=== PATIENT | female | born 1930 | race Caucasian/White ===

== ENCOUNTER 2017-12-08 13:11 | Emergency (ER) | payer MEDICARE, BC ==
--- NOTE | 2017-12-08 14:28 | RAD ---
RIGHT KNEE FOUR VIEWS: Indication: Post-traumatic pain. FINDINGS: Right knee prosthesis is present without hardware complication identified. No acute fracture is seen. IMPRESSION: Post-operative right knee without acute osseous abnormality visualized. POS: [facility]
--- NOTE | 2017-12-08 14:32 | RAD ---
TWO VIEW RIGHT HIP: Indication: Post-traumatic pain. FINDINGS: There is endstage osteoarthritis with obliteration of the joint space of the right hip. Subchondral s clerosis and cyst formation is present as well as prominent osteophytosis. There is irregularity of t he cephalad aspect of the greater trochanter, age indeterminate. Incidental note of osseous degenerat miguel change of the lower lumbar spine. IMPRESSION: 1. Osseous irregularity at the lateral aspect of the greater trochanter, age indeterminate. A minimal ly displaced acute fracture is suspected. Recommend correlation with physical examination and if nece ssary imaging follow up for confirmation. 2. Endstage right hip joint osteoarthritis. POS: [facility]
--- NOTE | 2017-12-08 15:05 | RAD ---
1 VIEW PELVIS: Date: 12/08/17 HISTORY: Trauma. COMPARISON: None. FINDINGS: Sacral ala preserved. Bony pelvis intact. sclerosis right sacroiliac joint. Moderate degenerative evan nge of right hip joint space. There appears to be a nondisplaced right greater trochanteric fracture. IMPRESSION: Nondisplaced right greater trochanteric fracture. POS: [facility]
--- NOTE | 2017-12-08 15:19 | CT ---
CT OF PELVIS NONCONTRAST: Date: 12/08/17 CLINICAL HISTORY: Fall with post-traumatic pain of the right hip with edema. FINDINGS: There is a mildly displaced, comminuted fracture centered at the greater trochanter of the proximal r ight femur. There is end-stage osteoarthritis of the right hip with joint space obliteration, subchon dral sclerosis, and cyst formation, as well as exuberant osteophytosis and heterotopic densities. The re is relative osteopenia at the proximal femora bilaterally. Degenerative changes are seen at the sy mphysis pubis and sacroiliac joints. There is osteoarthritis involving the imaged lower lumbar facet joints. Disc degenerative change is seen at the lower lumbar spine and lumbosacral junction. Incident al note of atherosclerosis, colonic diverticulosis, and fat-containing periumbilical hernia. IMPRESSION: There is a comminuted, mildly displaced greater trochanteric fracture of the right femur. POS: [facility]
[2017-12-08] MEDS ORDERED: Ondansetron HCl/PF 4 MG/2 ML Vial ONE (15:27)
[2017-12-08] MEDS ORDERED: HYDROcodone/Acetaminophen 10/325 mg Tablet ONE ×2 (15:27→15:28)
[2017-12-08 15:28] LABS: #Basophils 0.1 thou/uL (0.0-0.2); #Eosinphils 0.1 thou/uL (0.0-0.7); #Lymphocytes 1.8 thou/uL (1.20-3.40); #Monocytes 1.5 thou/uL (0.11-0.59); #Neutrophils 8.2 thou/uL (1.40-6.50); %Basophils 0.5 % (0.0-1.0); %Eosinophils 0.5 % (0.0-10.0); %Lymphocytes 15.1 % (21.0-51.0); %Monocytes 13.3 % (0.0-10.0); %Neutrophils 70.6 % (42.0-75.0); Hemoglobin 13.3 g/dL (12.0-16.0); Mean Corpuscular HGB CONC 35.9 g/dL (32.0-36.0); Mean Corpuscular Hemoglobin 34.5 pg (27.0-31.0); Mean Platelet Volume 6.9 fL (7.4-10.4); Platelet Count 210 thou/uL (130-400); RBC Distribution Width 11.5 % (11.5-14.5); Red Blood Cell (RBC) Count 3.85 mill/uL (4.20-5.40); White Blood Cell (WBC) Count 11.7 thou/uL (4.8-10.8)
[2017-12-08 15:36] LABS: INR-International Normal Ratio 1.8; PTT 51.1 SEC (22.9-36.1); Prothrombin Time 21.4 SEC (12.0-14.7)
[2017-12-08 15:49] LABS: ALT (SGPT) 18 U/L (8-55); AST (SGOT) 24 U/L (5-34); Albumin 3.8 g/dL (3.4-4.8); Alkaline Phosphatase 74 U/L (40-150); Anion Gap 14 mmol/L (10-20); BUN (Urea Nitrogen) 23 mg/dL (9.8-20.1); Bilirubin, Total 0.8 mg/dL (0.2-1.2); Calc. Creatinine Clearance 0 mL/min (70-130); Calcium 9.9 mg/dL (7.8-10.44); Carbon Dioxide 34 mmol/L (23-31); Chloride 89 mmol/L (98-107); Estimated GFR-MDRD 49; Globulin 3.2 g/dL (2.4-3.5); Glucose 117 mg/dL (83-110); Sodium 134 mmol/L (136-145)
== END 2017-12-08 21:19 ==
LOC: ERS 13:11
DX: S72.114A Nondisplaced fracture of greater trochanter of right femur, initial encounter for closed fracture (principal); I48.91 Unspecified atrial fibrillation; I10 Essential (primary) hypertension; E03.9 Hypothyroidism, unspecified; W06.XXXA Fall from bed, initial encounter
CPT/HCPCS: 36415; 72170; 72192; 80053; 85025; 85610; 85730; 96361; 96374; 96375; J2270; J2405

== ENCOUNTER 2018-04-15 07:58 | Inpatient (IN) | payer MEDICARE, BC ==
[2018-04-15] MEDS ORDERED: Diltiazem 125 MG/25 ML ONE ×2 (08:13→08:45)
[2018-04-15 08:30] LABS: #Basophils 0.1 thou/uL (0.0-0.2); #Lymphocytes 1.1 thou/uL (1.20-3.40); #Monocytes 0.9 thou/uL (0.11-0.59); %Basophils 0.7 % (0.0-1.0); %Eosinophils 0.5 % (0.0-10.0); %Lymphocytes 12.2 % (21.0-51.0); %Neutrophils 76.7 % (42.0-75.0); Hemoglobin 12.9 g/dL (12.0-16.0); Mean Corpuscular HGB CONC 33.5 g/dL (32.0-36.0); Mean Corpuscular Hemoglobin 31.7 pg (27.0-31.0); Mean Corpuscular Volume 94.5 fL (78.0-98.0); Mean Platelet Volume 7.4 fL (7.4-10.4); Platelet Count 204 thou/uL (130-400); RBC Distribution Width 13.6 % (11.5-14.5); Red Blood Cell (RBC) Count 4.07 mill/uL (4.20-5.40); White Blood Cell (WBC) Count 9.1 thou/uL (4.8-10.8)
[2018-04-15] MEDS ORDERED: Diltiazem 125 MG in Sodium Chloride 0.9% 100 ML IVPB SCH ×2 (08:30→19:00)
[2018-04-15 08:49] LABS: ALT (SGPT) 65 U/L (8-55); AST (SGOT) 74 U/L (5-34); Albumin 3.9 g/dL (3.4-4.8); Alkaline Phosphatase 142 U/L (40-150); Anion Gap 13 mmol/L (10-20); BUN (Urea Nitrogen) 14 mg/dL (9.8-20.1); Bilirubin, Total 1.3 mg/dL (0.2-1.2); Calc. Creatinine Clearance 0 mL/min (70-130); Calcium 9.5 mg/dL (7.8-10.44); Carbon Dioxide 25 mmol/L (23-31); Chloride 103 mmol/L (98-107); Estimated GFR-MDRD 65; Globulin 3.4 g/dL (2.4-3.5); Glucose 153 mg/dL (83-110); Potassium 4.1 mmol/L (3.5-5.1); Protein, Total 7.3 g/dL (6.0-8.3); Sodium 137 mmol/L (136-145)
[2018-04-15 08:53] LABS: CKMB 1.3 ng/mL (0-6.6); Troponin I Less than 0.010 ng/mL (< 0.028)
--- NOTE | 2018-04-15 10:06 | RAD ---
FRONTAL VIEW CHEST: COMPARISON: 05/30/07. CLINICAL HISTORY: Chest pain. FINDINGS: The cardiac silhouette is enlarged. There is interstitial prominence and prominence of the pulmonary vasculature. Mild pleural-based densities may relate to small volume pleural fluid. IMPRESSION: Findings most consistent with decompensated congestive heart failure. Recommend clinical correlation as well as imaging followup. POS: [facility]
[2018-04-15 12:45] LABS: Troponin I 0.013 ng/mL (< 0.028)
[2018-04-15 14:28] VITALS: BMI 27.4
[2018-04-15 15:35] LABS: Troponin I 0.041 ng/mL (< 0.028)
[2018-04-15] MEDS ORDERED: Acetaminophen 500 MG TAB PO PRN (18:50)
[2018-04-15] MEDS ORDERED: cloNIDine 0.1 MG TAB PO PRN (18:50)
[2018-04-15] MEDS ORDERED: Ondansetron HCl/PF 4 MG/2 ML Vial IVP PRN (18:50)
[2018-04-15] MEDS ORDERED: Ondansetron ODT 4 MG TAB PO PRN (18:50)
[2018-04-15] MEDS ORDERED: hydrALAZINE 20 MG/ML VIAL SLOW IVP PRN (18:50)
[2018-04-15] MEDS ORDERED: Furosemide 20 MG/2 ML VIAL SLOW IVP SCH (19:15)
[2018-04-15] MEDS: Famotidine 20 MG TAB PO SCH (20:23)
[2018-04-15] MEDS: Dabigatran 150 mg Capsule PO SCH (20:25)
[2018-04-15] MEDS: hydrALAZINE 25 MG TAB PO SCH (20:25)
[2018-04-15] MEDS: Donepezil HCl 5 MG TAB PO SCH (20:25)
--- NOTE | 2018-04-16 00:56 | HP ---
DATE OF ADMISSION: 04/15/2018 PRIMARY CARE PROVIDER: Dr. Miranda Rawls. CHIEF COMPLAINT: Fast heartbeat. HISTORY OF PRESENT ILLNESS: This is an 87-year-old female who presents to [facility] Emergency Department with atrial fibrillation and rapid ventricular response. Patient with longs tanding history of atrial fibrillation on chronic metoprolol and Pradaxa. The patient states she res ides at [facility] and had noticed some swelling of her feet within the last 24 hours. The patient actually states she is not exactly sure why she is at the hospital and states otherwise she feels fine. The patient ambulates in her home without a walker but for long distance ambulation , uses a rolling walker. In the emergency room, the patient was noted with atrial fibrillation with heart rates in the 150s. The patient was treated with IV diltiazem 10 mg x1 dose, IV push followed b y diltiazem infusion at 5 mg per hour. The patient's rate has improved with IV diltiazem with heart rates in the low 100s. The patient denies any medication noncompliance, recent fever, chills, travel history. The patient denies any increased shortness of breath, orthopnea, weight gain or unilateral weakness. PAST MEDICAL HISTORY: 1. Atrial fibrillation with chronic anticoagulation on Pradaxa. 2. Hypertension. 3. Hypothyroidism. 4. Early dementia. 5. Moderate mitral valve regurgitation. 6. Osteoporosis. 7. History of diverticulosis. PAST SURGICAL HISTORY: Status post tonsillectomy and adenoidectomy. CURRENT MEDICATIONS: 1. Pradaxa 150 mg one tab p.o. b.i.d. 2. Aricept 5 mg p.o. at bedtime. 3. Lasix 20 mg p.o. daily. 4. Hydralazine 25 mg p.o. b.i.d. 5. Levothyroxine 100 mcg p.o. daily. 6. Lisinopril 40 mg p.o. daily. 7. Toprol-XL 200 mg p.o. at bedtime. 8. Multivitamin 1 tab p.o. daily. 9. MiraLax 17 grams p.o. q.a.m. ALLERGIES: No known drug allergies. FAMILY HISTORY: No inheritable diseases per patient report. SOCIAL HISTORY: Resides at [facility]. No current alcohol, tobacco or illicit drug u se. Ambulates with a rolling walker for long distance. History of fall in early spring of 2018. REVIEW OF SYSTEMS: The following complete review of systems was negative, unless otherwise mentioned in the HPI or below: Constitutional: Weight loss or gain, ability to conduct usual activities. Sk in: Rash, itching. Eyes: Double vision, pain. ENT/Mouth: Nose bleeding, neck stiffness, pain, te nderness. Cardiovascular: Palpitations, dyspnea on exertion, orthopnea. Respiratory: Shortness of breath, wheezing, cough, hemoptysis, fever or night sweats. Gastrointestinal: Poor appetite, abdom inal pain, heartburn, nausea, vomiting, constipation, or diarrhea. Genitourinary: Urgency, frequenc y, dysuria, nocturia. Musculoskeletal: Pain, swelling. Neurologic/Psychiatric: Anxiety, depressio n. Allergy/Immunologic: Skin rash, bleeding tendency. PHYSICAL EXAMINATION: VITAL SIGNS: Currently, blood pressure 163/83, pulse 99, respiratory rate 18, temperature 98.2 degre es Fahrenheit, O2 saturation 94% on room air. GENERAL APPEARANCE: This is an 87-year-old female, alert and oriented x3, pleasant, conver tara, in no acute distress. HEENT: Pupils are equal, round, and reactive to light and accommodation. Extraocular muscles are in tact. No scleral icterus, no conjunctival injection. Nares patent. OP is clear. Teeth in fair rep air. NECK: Supple, no cervical adenopathy, no thyromegaly, no carotid bruits, no JVD appreciated. Cervic al spine with full active and passive range of motion. No meningeal signs appreciated. CHEST: Lungs are clear to auscultation bilaterally. Mild bibasilar crackles. CARDIOVASCULAR: S1, S2 with irregular rate and rhythm. ABDOMEN: Rounded, soft, nontender, nondistended. Bowel sounds are positive in all four quadrants. There is no hepatosplenomegaly, no abdominal bruits, no rebound or guarding. EXTREMITIES: Warm and dry with fair turgor. Mild edema to the mid shins bilaterally. Pulses palpab le distally at the dorsalis pedis, posterior tibial, and popliteal arteries bilaterally. Capillary r efill less than 2 seconds. NEUROLOGIC: Cranial nerves II-XII are grossly intact. No focal or lateralizing signs appreciated. PERTINENT LABORATORY AND X-RAY FINDINGS: Sodium 137, potassium 4.1, chloride 103, CO2 of 25, BUN 14, creatinine 0.83, estimated GFR 65, glucose 153, calcium 9.5, total bilirubin 1.3, AST 74, ALT of 65, alkaline phosphatase 142, troponin I ranged between 0.010-0.040. BNP 1027. CBC showed a white bloo d cell count 9.1, hemoglobin 12.9, hematocrit 38.5, platelet count 204 with 77% neutrophils. Portabl e chest x-ray dated 04/15/2018 showed pulmonary vascular prominence. EKG dated 04/15/2018 by rodrigue clifton shows atrial fibrillation with rapid ventricular response, heart rates in the 150s. Telem etry monitoring currently shows atrial fibrillation with heart rates in the 100s. ASSESSMENT AND PLAN: 1. Atrial fibrillation with rapid ventricular response. Patient will be admitted to the telemetry u nit. We will continue Cardizem infusion at 5 mg per hour. Resume metoprolol 200 mg p.o. daily. Con adult manager additional calcium channel estela for rate control. Continue Pradaxa 150 mg p.o. b.i.d. Cons t cardiology service for further recommendations on management. Check 2D transthoracic echocardiog joanne and magnesium level in the a.m. 2. Hypertension. Resume home regimen to include metoprolol succinate 200 mg daily, lisinopril 40 mg daily, and hydralazine 25 mg b.i.d. Continue serial blood pressure monitoring. 3. Hypothyroidism. Continue levothyroxine 100 mcg daily. Last free T4 level within normal limits i n 03/2018. 4. Early dementia. Resume home regimen of Aricept 5 mg at bedtime. 5. Prophylaxis. Sequential compression devices while in bed. Pepcid 20 mg p.o. b.i.d. PT evaluati on in a.m. for functional assessment. 6. Code status is DO NOT RESUSCITATE, confirmed with family and patient. Surrogate medical decision maker is patient's son.
[2018-04-16 05:37] LABS: ALT (SGPT) 46 U/L (8-55); AST (SGOT) 39 U/L (5-34); Albumin 3.3 g/dL (3.4-4.8); Alkaline Phosphatase 108 U/L (40-150); Anion Gap 13 mmol/L (10-20); BUN (Urea Nitrogen) 14 mg/dL (9.8-20.1); Bilirubin, Total 1.1 mg/dL (0.2-1.2); Calc. Creatinine Clearance 58 mL/min (70-130); Calcium 8.7 mg/dL (7.8-10.44); Carbon Dioxide 24 mmol/L (23-31); Chloride 102 mmol/L (98-107); Estimated GFR-MDRD 74; Glucose 108 mg/dL (83-110); Potassium 3.6 mmol/L (3.5-5.1); Protein, Total 6.3 g/dL (6.0-8.3); Sodium 135 mmol/L (136-145)
[2018-04-16] MEDS: Levothyroxine Sodium 100 MCG TAB PO SCH (06:15)
[2018-04-16 07:05] LABS: Band 3 % (5-11); Hemoglobin 11.4 g/dL (12.0-16.0); Lymphocytes 12 % (21-51); MDiff Complete? YES; Mean Corpuscular HGB CONC 32.2 g/dL (32.0-36.0); Mean Corpuscular Volume 96.1 fL (78.0-98.0); Mean Platelet Volume 7.9 fL (7.4-10.4); Monocytes 7 % (0-10); Neutrophil 78 % (42-75); PLT Morphology Comment Appears Adequate; Platelet Count 182 thou/uL (130-400); RBC Distribution Width 13.5 % (11.5-14.5); RBC Morphology Normal; Red Blood Cell (RBC) Count 3.69 mill/uL (4.20-5.40); White Blood Cell (WBC) Count 10.5 thou/uL (4.8-10.8)
[2018-04-16] MEDS: Famotidine 20 MG TAB PO SCH ×2 (08:14→19:30)
[2018-04-16] MEDS: Dabigatran 150 mg Capsule PO SCH ×2 (08:14→19:29)
[2018-04-16] MEDS: Furosemide 20 MG TAB PO SCH (08:14)
[2018-04-16] MEDS: hydrALAZINE 25 MG TAB PO SCH ×2 (08:14→19:29)
[2018-04-16] MEDS: Polyethylene Glycol 3350 17 GM Packet PO SCH (08:15)
[2018-04-16] MEDS: Multivit, Therapeutic 1 TAB PO SCH (08:15)
[2018-04-16] MEDS: Lisinopril 20 MG TAB PO SCH (08:15)
--- NOTE | 2018-04-16 11:59 | PDOC.PN ---
- Subjective Encounter Start Date: 04/16/18 Encounter Start Time: 11:50 Subjective: f/u for A-fib RVR on Cardizem gtt. Rate controlled currently and pt -: states she feels ok. Echo pending. No CP, SOB. - Objective Resuscitation Status: Resuscitation Status DNR:Do Not Resuscitate MAR Reviewed: Yes Vital Signs & Weight: Vital Signs (12 hours) Temp Pulse Resp BP Pulse Ox 04/16/18 07:33 98.5 F 77 18 93 L 04/16/18 07:31 98.5 F 77 18 164/73 H 93 L 04/16/18 04:00 98.2 F 76 20 146/67 H 92 L 04/16/18 00:00 98.9 F 77 21 H 143/83 H 92 L Weight Weight 150 lb 3.2 oz I&O: 04/15/18 04/16/18 04/17/18 06:59 06:59 06:59 Intake Total 1200 Balance 1200 Result Diagrams: 04/16/18 04:39 04/16/18 04:39 Additional Labs: Laboratory Tests 04/15/18 04/15/18 04/16/18 08:20 08:23 04:39 AST 74 H 39 H ALT 65 H 46 B-Natriuretic Peptide 1027.1 H EKG Reviewed by me: Yes (Tele - A-fib in 80's) Phys Exam - Physical Examination Constitutional: NAD HEENT: PERRLA, sclera anicteric, oral pharynx no lesions Neck: no nodes, no JVD, supple, full ROM few basilar crackles Respiratory: no rales, no rhonchi S1, S2 Cardiovascular: no significant murmur, no rub, gallop, irregular Gastrointestinal: soft, non-tender, no distention, positive bowel sounds mild edema bilat LE's Musculoskeletal: pulses present, edema present Neurological: non-focal, normal sensation, moves all 4 limbs Psychiatric: normal affect, A&O x 3 Skin: no rash, normal turgor, cap refill <2 seconds Dx/Plan (1) Atrial fibrillation with RVR Code(s): I48.91 - UNSPECIFIED ATRIAL FIBRILLATION Status: Acute (2) HTN (hypertension) Code(s): I10 - ESSENTIAL (PRIMARY) HYPERTENSION Status: Acute (3) Hypothyroidism Code(s): E03.9 - HYPOTHYROIDISM, UNSPECIFIED Status: Acute (4) 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
[2018-04-16] MEDS: Donepezil HCl 5 MG TAB PO SCH (19:29)
--- NOTE | 2018-04-16 22:45 | CON ---
DATE OF CONSULTATION: 04/16/2018 HISTORY OF PRESENT ILLNESS: Th e patient is an 87-year-old woman, who presented after having a fall and was noted to have a rapid heart rate. The patient has a history of chronic atrial fibrillation. The patient takes chronic anticoagulation therapy. The patient apparently lives in a fci and had a fall and was brought to the ER for further evaluation. This patient is confused. She denies having any palpitations or chest discomfort. PAST MEDICAL HISTORY: 1. Chronic atrial fibrillation. 2. Hypertension. 3. Hypothyroidism. 4. Dementia. PAST SURGICAL HISTORY: Tonsillectomy, and adenoidectomy. MEDICATIONS: See nursing list. ALLERGIES: None. FAMILY HISTORY: No strong family history of heart disease. SOCIAL HISTORY: Lives in a fci. REVIEW OF SYSTEM: Notable for memory loss. Ten-point system otherwise unremarkable. PHYSICAL EXAMINATION: GENERAL: Confused woman, alert and oriented x1 with a blood pressure 147/67. NECK: Showed no jugular venous distention. LUNGS: Have a few crackles in both bases. HEART: Irregular rate and rhythm, normal S1, S2 with a 1/6 systolic murmur. ABDOMEN: Nondistended. EXTREMITIES: Mild edema. SKIN: Warm and dry. VASCULAR: Radial pulses are 2+. LABORATORY DATA: Sodium 135, potassium 3.6, chloride 102, BUN 14, creatinine 0.74, glucose is 108. White blood cell count is 10.5, hemoglobin 11.4, hematocrit 35.5 and her platelets are 182. IMPRESSION: 1. Atrial fibrillation with rapid ventricular response. 2. Congestive heart failure, probably secondary to diastolic dysfunction. 3. Hypertension. 4. Dementia. This patient presents with atrial fibrillation with rapid ventricular response. The patient responded well to IV Cardizem, and was switched to p.o. Cardizem. The patient has evidence of congestive heart failure, we would increase the dose of the patient's Lasix. We will follow this patient with you through her hospitalization. LATIA
[2018-04-17] MEDS: Levothyroxine Sodium 100 MCG TAB PO SCH (05:58)
[2018-04-17] MEDS: Polyethylene Glycol 3350 17 GM Packet PO SCH (10:00)
[2018-04-17] MEDS: Lisinopril 20 MG TAB PO SCH (10:00)
[2018-04-17] MEDS: hydrALAZINE 25 MG TAB PO SCH (10:01)
[2018-04-17] MEDS: Famotidine 20 MG TAB PO SCH (10:01)
[2018-04-17] MEDS: Dabigatran 150 mg Capsule PO SCH (10:01)
[2018-04-17] MEDS: Multivit, Therapeutic 1 TAB PO SCH (10:02)
[2018-04-17] MEDS: Furosemide 20 MG TAB PO SCH ×2 (10:04→11:43)
[2018-04-17 20:20] VITALS: BP 160/70; TEMP 98.2
--- NOTE | 2018-04-18 00:44 | DIS ---
DATE OF ADMISSION: 04/15/2018 DATE OF DISCHARGE: 04/17/2018 DISCHARGE DIAGNOSES: 1. Atrial fibrillation with rapid ventricular response, controlled rate currently. 2. Chronic anticoagulation with Pradaxa. 3. Hypertension, labile. 4. Hypothyroidism, stable. 5. Early onset dementia. 6. Transaminitis, mild, resolving. CONSULTATIONS: Dr. Mir Haq with Cardiology Service. PERTINENT LABORATORY AND X-RAY FINDINGS: Creatinine ranged between 0.74-0.83, estimated GFR ranging between 65-74. Magnesium level 2.0, AST ranged between 39-74, ALT ranged between 46-65, alkaline jose roberto sphatase ranged between 108-142. BNP 1027. CBC showed hemoglobin range between 1.4-12.9. Portable chest x-ray dated 04/15/2018 showed pulmonary edema. A 2D transthoracic echocardiogram dated 018 showed ejection fraction of 50-55%. Moderate left atrial enlargement. Mild to moderate mitral v alve regurgitation. Mild to moderate tricuspid regurgitation. HOSPITAL COURSE: The patient was admitted to the telemetry unit after presenting with palpitations a nd atrial fibrillation with rapid ventricular response; longstanding history of atrial fibrillation, on chronic metoprolol and Pradaxa, presenting with rapid ventricular response. The patient initially managed with IV diltiazem followed by diltiazem infusion. The patient underwent a 2D transthoracic echocardiogram showing overall preserved ejection fraction in the 50-55% range with atrial enlargemen t. The patient continued on Pradaxa 150 mg b.i.d. throughout her hospital course. The patient was e valuated by the cardiology service with recommendations to transition to Cardizem 120 mg daily for ra te control. The patient's overall rate improved into the 80s and sustained for the remainder of the hospital course. The patient resumed metoprolol succinate 200 mg daily, in addition to Cardizem 120 mg daily. The patient was noted with mild labile hypertension with recommendations to monitor on an ongoing basis after discharge. Overall, the patient remained clinically stable throughout the hospit al course, tolerating regular oral intake, voiding appropriately and ambulating with rolling walker. I have examined the patient at the time of discharge and discussed pertinent follow up instructions, at which point the patient verbalized understanding and agreement. The patient overall clinically s table and ready for discharge on 04/17/2018. DISCHARGE MEDICATIONS: 1. Pradaxa 150 mg p.o. b.i.d. 2. Cardizem-CD 120 mg p.o. daily. 3. Aricept 5 mg p.o. at bedtime. 4. Lasix 20 mg p.o. daily. 5. Hydralazine 25 mg p.o. b.i.d. 6. Levothyroxine 100 mcg p.o. daily. 7. Lisinopril 40 mg p.o. daily. 8. Toprol-XL 200 mg p.o. at bedtime. 9. Multivitamin 1 tab p.o. daily. 10. MiraLax 1 packet p.o. q.a.m. FOLLOWUP: The patient may follow up with her primary care provider, Dr. Miranda Rawls within 7 d ays of discharge. The patient will follow up with Dr. Lauro Leonardo on 04/19/2018 at 10:45 a.m. The patient may also follow up with cardiac rehabilitation services and will receive a call from the ir office. CONDITION ON DISCHARGE: Stable. ACTIVITY: Ad olga. Rolling walker for ambulation. DIET: Heart healthy. CODE STATUS: FULL. DISPOSITION: [facility] on 04/17/2018.
--- NOTE | 2018-04-30 00:22 | EKG ---
Test Reason : Blood Pressure : / mmHG Vent. Rate : 153 BPM Atrial Rate : 174 BPM P-R Int : 000 ms QRS Dur : 116 ms QT Int : 308 ms P-R-T Axes : 000 -29 123 degrees QTc Int : 491 ms Atrial fibrillation with rapid ventricular response Incomplete left bundle branch block Marked ST abnormality, possible lateral subendocardial injury Abnormal ECG Confirmed by JORDON HARDWICK, GARY ([id number]), photographic editor MICK WILKINS ([id number]) on 04/30/2018 12:21:59 AM Referred By: Confirmed By:GARY RUVALCABA MD
== END 2018-04-17 18:08 | disposition home or self-care (01) | DRG 309 ==
LOC: ERS 07:58 → 2NO 11:26
PROVIDERS: ADMIT Family Medicine; ATTEND Family Medicine
PROC: B246ZZZ Ultrasonography of Right and Left Heart (ICD-10-PCS; principal; 2018-04-16)
DX: I48.91 Unspecified atrial fibrillation (principal); I50.32 Chronic diastolic (congestive) heart failure; Z79.01 Long term (current) use of anticoagulants; E03.9 Hypothyroidism, unspecified; R74.0 Nonspecific elevation of levels of transaminase and lactic acid dehydrogenase [LDH]; I11.0 Hypertensive heart disease with heart failure; G30.0 Alzheimer's disease with early onset; F02.80 Dementia in other diseases classified elsewhere, unspecified severity, without behavioral disturbance, psychotic disturbance, mood disturbance, and anxiety; M81.0 Age-related osteoporosis without current pathological fracture; Z66 Do not resuscitate
CPT/HCPCS: 36415; 71045; 80053; 82553; 83735; 83880; 84484; 85007; 85025; 85027; 93005; 93306; 96365; 96366; 96376; G8978-GP-CJ; G8979-GP-CJ; G8980-GP-CJ; J0360; J1940; J7050